=== PATIENT | male | born 2000 | race Caucasian/White ===

== ENCOUNTER 2024-02-26 22:29 | Emergency (ER) | payer SELFPAY ==
[2024-02-26 22:38] VITALS: BP 144/93
[2024-02-26 22:58] LABS: % Basophils 0.6 % (0-2); % Eosinophils 3.5 % (0-6); % Immature Granulocytes 0.1 % (0-0.5); % Lymphocytes 41.4 % (20.5-51.1); % Monocytes 7.5 % (1.7-9.3); % Neutrophils 46.9 % (42.2-75.2); Absolute Basophils 0.1 10^3/uL (0-0.2); Absolute Eosinophils 0.3 10^3/uL (0-0.7); Absolute Lymphocytes 3.8 10^3/uL (1.2-3.4); Absolute Monocytes 0.7 10^3/uL (0.1-0.6); Absolute Neutrophils 4.3 10^3/uL (1.4-6.5); Hematocrit 42.1 % (39.0-52.0); Hemoglobin 15.1 g/dL (13.0-18.0); Mean Corp Hgb Conc. 35.9 g/dL (33.0-37.0); Mean Corpuscular Hgb 30.4 pg (27.0-31.0); Mean Corpuscular Volume 84.9 fL (80.0-94.0); Mean Platelet Volume 12.3 fL (7.4-10.4); Nucleated Red Blood Cells % 0 % (-); Platelet Count 172 10^3/uL (130-400); Red Blood Cell Count 4.96 10^6/uL (4.70-6.10); Red Cell Dist. Width 12.4 % (11.5-14.5); White Blood Cell Count 9.3 10^3/uL (4.8-10.8)
[2024-02-26 23:12] LABS: ALT (SGPT) 17 U/L (0-50); AST (SGOT) 24 U/L (17-59); Albumin 4.9 g/dl (3.5-5.0); Alkaline Phosphatase 63 U/L (38-126); Blood Urea Nitrogen 19 mg/dl (9-20); Calcium 10.1 mg/dl (8.4-10.2); Carbon Dioxide 27 mmol/L (22-30); Chloride 99 mmol/L (98-107); Glucose 106 mg/dl (70-99); Potassium 4.1 mmol/L (3.5-5.1); Sodium 138 mmol/L (135-145); Total Protein 7.8 g/dl (6.3-8.2)
[2024-02-26 23:20] LABS: eGFR > 60.00
[2024-02-26 23:22] LABS: Troponin I < 0.012 ng/ml
== END 2024-02-27 01:45 ==
LOC: EMR 22:29
PROVIDERS: Emergency Medicine
DX: R07.89 Other chest pain (principal)
CPT/HCPCS: 80053; 84484; 85025; 93005

== ENCOUNTER 2025-09-29 10:28 | Emergency (ER) | payer OTHER, SELFPAY ==
[2025-09-29 10:32] VITALS: BP 134/71
--- NOTE | 2025-09-29 10:58 | ED.GENMED ---
History of Present Illness
General
Chief Complaint: Breathing Problem
Source: patient
Exam Limitations: none
Time Seen by Provider: 09/29/25 10:58
Nursing documentation reviewed up to this point in time: agreed with
History of Present Illness
History of Present Illness:
25 yr old male presents to the ED for evaluation for chest pain. Patient reports that he woke up and has had at least 15 episodes of sharp pain to the left side of his chest when he takes a deep breath. It occurs intermittently and not with every
breath. He reports when he has it is severe and lasts the entire inspiration. He currently denies. 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 He denies any injury. He had' this once in the past and blew it off.'
He does not smoke. He reports his dad has cardiac history has his first stent in his 40s. He reports no clotting issues in the family. He denies any recent PE DVT risk factors.
Phy Exam
General Physical Exam
General Presentation: no apparent distress
General age: appears stated age
General Skin: warm and dry
General Habitus: normal
General Mental: alert
General Hydration: appears well hydrated
Cardiovascular Exam
Cardiovascular Exam: regular rate/rhythm, no murmur and normal peripheral pulses
Pulmonary Exam
Pulmonary Exam: lungs clear and no respiratory distress
Neurological Exam
Neurological Exam: alert and oriented x3
Musculoskeletal Exam
Musculoskeletal Exam: full ROM
Skin Exam
Skin Exam: normal color and warm/dry
Psychiatric Exam
Psychiatric Exam: normal mood/affect
Course
Orders/Labs/Results
Orders:
Orders
09/29/25 10:35
ECG [Electrocardiogram (*1)] Urgent
Reason for Study: Chest Pain
EKG- Treatment ONCE
09/29/25 11:12
Cardiac Monitoring- Treatment ONCE
CR Chest - 2 Views Urgent
Comment:
Reason For Exam: cp
09/29/25 11:21
Complete Blood Count/With Diff Urgent
Comprehensive Metabolic Panel Urgent
D-Dimer Urgent
Troponin I Urgent
Abnormal Lab Results
09/29/25
11:21
RBC 4.58 L 10^6/uL
(4.70-6.10)
MPV 12.4 H fL
(7.4-10.4)
Total Bilirubin 1.5 H mg/dl
(0.2-1.3)
09/29/25 11:21
09/29/25 11:21
Vital Signs
Initial and Last Documented VS:
Initial Vital Signs
Temp Pulse Resp BP Pulse Ox
98.3 F 79 18 134/71 99
09/29/25 10:32 09/29/25 10:32 09/29/25 10:32 09/29/25 10:32 09/29/25 10:32
Last Documented Vital Signs
Temp Pulse Resp BP Pulse Ox
98.3 F 63 6 134/71 98
09/29/25 10:32 09/29/25 11:25 09/29/25 11:25 09/29/25 10:32 09/29/25 11:25
MDM/Problems Addressed
Differential Diagnosis Includes:
not limited to: Musculoskeletal pain less likely ACS less likely PE possible costochondritis
MDM/Problems Addressed:
Patient had a negative workup here in the ER including negative cardiac troponin EKG D-dimer and chest x-ray. Patient does physical labor likely musculoskeletal .
Patient is well-appearing in no acute distress stable for discharge home.
*Radiology
Radiology exam reviewed: radiology read reviewed
*Pulse Oximetry
SaO2: 99
Oxygen Mode of Delivery: Room air
Patient hypoxic: no
*EKG
Interpreted by ED Provider?: Yes
Interpretation: normal
Comparison EKG: no changes
Heart Rate: 67
Rate: normal
Rhythm: sinus
Ischemia: no ischemia
*Critical Care Note
Total Time (30-74mins, 75-104mins- exclusive of procedures): Not Applicable
ED Attending Note
-
Portions of this chart may have been created with voice recognition software.� Occasional wrong word or��sound alike� substitutions may have occurred due to the inherent limitations of voice recognition software.
Discharge Plan
Departure
Patient Disposition: Home (Routine Discharge)
Date of Disposition: 09/29/25
Time of Disposition: 12:32
Patient with high blood pressure during this ER visit?: No
Condition: Fair
Covid-19: Not Applicable
Discharge Problem:
Chest pain
Instructions: Chest Pain (DC)
Referrals:
[facility] [Outside]
NONE,* [Family Provider, Internal Medicine]
Activity Restrictions/Additional Instructions:
As discussed your symptoms are likely musculoskeletal pain. Your workup was negative. You may take ibuprofen as needed. Follow-up close with your family doctor next of days return if any worsening of symptoms. You were given family practice
clinic in [place].
Interventions
Interventions:
*Risk Screen - Suicide Last Done: 09/29/25 10:32
*General Assessment Last Done: 09/29/25 11:26
*Neglect/Abuse Screening Last Done: 09/29/25 11:26
*ED COVID-19 Vaccine History Last Done: 09/29/25 11:26
*ED Influenza Vaccine History Last Done: 09/29/25 11:26
ED- Cardiac Assessment Last Done: 09/29/25 11:38
ED- Pulmonary Assessment Last Done: 09/29/25 11:38
Discharge Date and Time
Print Language: IRISH
[2025-09-29 11:25] VITALS: BP 120/78; BMI 24.2
[2025-09-29 11:36] LABS: Hematocrit 41.0 % (39.0-52.0); Hemoglobin 13.9 g/dL (13.0-18.0); Mean Corp Hgb Conc. 33.9 g/dL (33.0-37.0); Mean Corpuscular Volume 89.5 fL (80.0-94.0); Nucleated Red Blood Cells % 0 % (-); Platelet Count 157 10^3/uL (130-400); Red Cell Dist. Width 12.7 % (11.5-14.5)
[2025-09-29 11:48] LABS: D-Dimer 0.33 ug/mlFEU (0.00-0.50)
[2025-09-29 11:55] LABS: ALT (SGPT) 23 U/L (0-50); AST (SGOT) 24 U/L (17-59); Albumin 4.5 g/dl (3.5-5.0); Alkaline Phosphatase 53 U/L (38-126); Blood Urea Nitrogen 16 mg/dl (9-20); Calcium 9.6 mg/dl (8.4-10.2); Carbon Dioxide 30 mmol/L (22-30); Chloride 102 mmol/L (98-107); Estimated Creatinine Clearance 121 ml/min; Glucose 91 mg/dl (70-99); Potassium 4.2 mmol/L (3.5-5.1); Sodium 135 mmol/L (135-145); Total Protein 7.4 g/dl (6.3-8.2); eGFR > 60.00
[2025-09-29 12:01] LABS: Troponin I < 0.012 ng/ml
== END 2025-09-29 12:39 | disposition home or self-care (01) ==
LOC: EMR 10:28
PROVIDERS: Nurse Practitioner; EMERGENCY PHYSICIAN Emergency Medicine
DX: R07.9 Chest pain, unspecified (principal)
CPT/HCPCS: 99284; 71046; 80053; 84484; 85025; 85379; 93005